=== PATIENT | female | born 1980 | race Caucasian/White ===

== ENCOUNTER 2017-04-04 15:04 | Day surgery (SDC) | payer OTHER ==
[~2017-04-04] VITALS: Ht 162.6 cm; Wt 64.8 kg
[~2017-04-04 15:04] MED LIST: AMOXICILLIN500 MG PO; FLEXERIL5 MG PO; PROZAC20 M1 PO; PYRIDIUM200 MG PO; ULTRAM50 MG PO
== END 2017-04-04 16:20 | disposition home or self-care (01) ==
LOC: PAIN 15:04 → SDC 15:15 → PAIN 16:20
DX: M51.06 Intervertebral disc disorders with myelopathy, lumbar region (principal); F41.8 Other specified anxiety disorders; M54.2 Cervicalgia; M41.9 Scoliosis, unspecified; M47.814 Spondylosis without myelopathy or radiculopathy, thoracic region; F17.210 Nicotine dependence, cigarettes, uncomplicated; Z79.891 Long term (current) use of opiate analgesic
CPT/HCPCS: J1030; J2250; J3010; S0020

== ENCOUNTER 2017-04-11 14:38 | Day surgery (SDC) | payer OTHER ==
[~2017-04-11] VITALS: Ht 162.6 cm; Wt 64.8 kg
== END 2017-04-11 15:38 | disposition home or self-care (01) ==
LOC: PAIN 14:38 → SDC 15:15 → PAIN 15:38
DX: M47.16 Other spondylosis with myelopathy, lumbar region (principal); M79.1 Myalgia; M54.5 Low back pain; M41.9 Scoliosis, unspecified; M47.814 Spondylosis without myelopathy or radiculopathy, thoracic region; M54.2 Cervicalgia; F41.8 Other specified anxiety disorders; F17.210 Nicotine dependence, cigarettes, uncomplicated; Z79.891 Long term (current) use of opiate analgesic; Z79.899 Other long term (current) drug therapy
CPT/HCPCS: J1030; J2250; J3010; S0020

== ENCOUNTER 2017-05-29 14:28 | Day surgery (SDC) | payer OTHER ==
[~2017-05-29] VITALS: Ht 162.6 cm; Wt 64.8 kg
== END 2017-05-29 16:12 | disposition home or self-care (01) ==
LOC: PAIN 14:28 → SDC 15:00 → PAIN 16:12
PROC: BR161ZZ Fluoroscopy of Lumbar Facet Joint(s) using Low Osmolar Contrast (ICD-10-PCS; principal; 2017-05-29)
PROC: 3E0T3TZ Introduction of Destructive Agent into Peripheral Nerves and Plexi, Percutaneous Approach (ICD-10-PCS; principal; 2017-05-29)
DX: M47.16 Other spondylosis with myelopathy, lumbar region (principal); M54.5 Low back pain; M54.2 Cervicalgia; M79.1 Myalgia; M47.812 Spondylosis without myelopathy or radiculopathy, cervical region; F17.210 Nicotine dependence, cigarettes, uncomplicated; Z79.891 Long term (current) use of opiate analgesic
CPT/HCPCS: J1030; J2250; J3010; S0020

== ENCOUNTER 2017-06-05 14:26 | Day surgery (SDC) | payer OTHER ==
[~2017-06-05] VITALS: Ht 162.6 cm; Wt 64.8 kg
== END 2017-06-05 15:40 | disposition home or self-care (01) ==
LOC: PAIN 14:26 → SDC 15:00 → PAIN 15:40
DX: M47.16 Other spondylosis with myelopathy, lumbar region (principal); M54.5 Low back pain; M79.1 Myalgia; F17.210 Nicotine dependence, cigarettes, uncomplicated
CPT/HCPCS: J1030; J2250; J3010; S0020

== ENCOUNTER 2017-10-16 08:28 | Day surgery (SDC) | payer OTHER ==
[~2017-10-16] VITALS: Ht 162.6 cm; Wt 65.0 kg
== END 2017-10-16 09:56 | disposition home or self-care (01) ==
LOC: PAIN 08:28
DX: M47.812 Spondylosis without myelopathy or radiculopathy, cervical region (principal); M47.816 Spondylosis without myelopathy or radiculopathy, lumbar region; F17.200 Nicotine dependence, unspecified, uncomplicated; F41.0 Panic disorder [episodic paroxysmal anxiety]; Z88.5 Allergy status to narcotic agent
CPT/HCPCS: J1030; J2250; J3010; S0020

== ENCOUNTER 2018-01-31 13:30 | Day surgery (SDC) | payer OTHER ==
[~2018-01-31] VITALS: Ht 162.6 cm; Wt 66.8 kg
[2018-01-31 13:56] VITALS: BP 116/80
[2018-01-31 13:58] LABS: BASOPHIL (%) 0.3 % (0-1); EOSINOPHIL (%) 0.8 % (0-5); EOSINOPHIL COUNT 0.1 K/uL (0-0.3); HEMOGLOBIN 12.2 G/DL (11.9-15.5); IMMATURE GRANULOCYTE (%) 0.4 % (0.0-0.7); LYMPHOCYTE (%) 24.1 % (15-42); LYMPHOCYTE COUNT 2.6 K/uL (1.0-2.8); MCH 28.3 PG (29.0-34.0); MCHC 32.1 G/DL (30.0-36.0); MCV 88.2 FL (83-99); MONOCYTE (%) 5.9 % (3-12); MONOCYTE COUNT 0.6 K/uL (0-0.8); NEUTROPHIL (%) 68.5 % (45-76); NEUTROPHIL COUNT 7.4 K/uL (1.8-6.4); PLATELET COUNT 261 K/uL (156-360); RBC DIS.WIDTH-CV 12.7 % (11.8-14.6); RBC DIS.WIDTH-SD 41.2 % (39-53); RED BLOOD COUNT 4.31 M/uL (3.80-5.20); WHITE BLOOD COUNT 10.9 K/uL (4.1-10.2)
[2018-01-31 14:11] LABS: PTT 29.4 SEC (25-37)
[2018-01-31 14:20] LABS: CHLORIDE 107 MEQ/L (99-109); CREATININE 0.7 MG/DL (0.6-1.3); GFR ESTIMATE (CALCULATED) > 59 mL/min/; GLUCOSE 96 mg/dL (70-99); POTASSIUM 3.9 MEQ/L (3.7-5.4); SODIUM 139 MEQ/L (136-147); UREA NITROGEN (BUN) 13 mg/dL (9-23)
[2018-01-31 14:25] LABS: QUANTITATIVE HCG < 4.0 MIU/ML
[2018-01-31] MEDS ORDERED: MOTRIN800 MG PO (18:21)
[2018-01-31 19:01] VITALS: BP 100/52
[2018-01-31 19:50] VITALS: BP 107/59
== END 2018-01-31 20:05 | disposition home or self-care (01) ==
LOC: SDC 13:30
PROVIDERS: Obstetrics & Gynecology
DX: N99.840 Postprocedural hematoma of a genitourinary system organ or structure following a genitourinary system procedure (principal); N75.0 Cyst of Bartholin's gland; N90.89 Other specified noninflammatory disorders of vulva and perineum; F41.0 Panic disorder [episodic paroxysmal anxiety]; M47.812 Spondylosis without myelopathy or radiculopathy, cervical region; M47.816 Spondylosis without myelopathy or radiculopathy, lumbar region; M79.1 Myalgia; M47.814 Spondylosis without myelopathy or radiculopathy, thoracic region; F17.200 Nicotine dependence, unspecified, uncomplicated
CPT/HCPCS: 80048; 84702; 85025; 85610; 85730; 86850; 86900; 86901; J0131; J1170; J1580; J1885; J2250; J3010; J7050

== ENCOUNTER 2018-07-16 06:54 | Day surgery (SDC) | payer OTHER ==
[~2018-07-16] VITALS: Ht 162.6 cm; Wt 68.0 kg
[~2018-07-16 06:54] MED LIST changes: +INDOCIN50 MG PO; +METAXALONE400 MG PO; +MOTRIN800 MG PO
== END 2018-07-16 08:45 | disposition home or self-care (01) ==
LOC: PAIN 06:54 → SDC 07:30 → PAIN 07:30
PROC: 3E0T3TZ Introduction of Destructive Agent into Peripheral Nerves and Plexi, Percutaneous Approach (ICD-10-PCS; principal; 2018-07-16)
PROC: B01B1ZZ Fluoroscopy of Spinal Cord using Low Osmolar Contrast (ICD-10-PCS; principal; 2018-07-16)
DX: M47.812 Spondylosis without myelopathy or radiculopathy, cervical region (principal); M50.90 Cervical disc disorder, unspecified, unspecified cervical region; M19.90 Unspecified osteoarthritis, unspecified site; M46.92 Unspecified inflammatory spondylopathy, cervical region; F17.200 Nicotine dependence, unspecified, uncomplicated; Z88.5 Allergy status to narcotic agent
CPT/HCPCS: J1030; J1885; J2250; J3010; S0020

== ENCOUNTER 2018-07-23 06:48 | Day surgery (SDC) | payer OTHER ==
[~2018-07-23] VITALS: Ht 162.6 cm; Wt 68.0 kg
== END 2018-07-23 08:16 | disposition home or self-care (01) ==
LOC: PAIN 06:48 → SDC 07:30 → PAIN 08:16
PROC: BR141ZZ Fluoroscopy of Cervical Facet Joint(s) using Low Osmolar Contrast (ICD-10-PCS; principal; 2018-07-23)
PROC: 3E0T3TZ Introduction of Destructive Agent into Peripheral Nerves and Plexi, Percutaneous Approach (ICD-10-PCS; principal; 2018-07-23)
DX: M47.812 Spondylosis without myelopathy or radiculopathy, cervical region (principal); M46.92 Unspecified inflammatory spondylopathy, cervical region; M50.90 Cervical disc disorder, unspecified, unspecified cervical region; M47.816 Spondylosis without myelopathy or radiculopathy, lumbar region; M79.1 Myalgia; G89.29 Other chronic pain; F41.0 Panic disorder [episodic paroxysmal anxiety]; F17.200 Nicotine dependence, unspecified, uncomplicated; Z79.891 Long term (current) use of opiate analgesic; Z88.5 Allergy status to narcotic agent
CPT/HCPCS: J1030; J2250; J3010; S0020